=== PATIENT | male | born 1965 | race Caucasian/White ===

== ENCOUNTER 2017-11-08 16:43 | Emergency (ER) | payer OTHER ==
--- NOTE | 2017-11-08 17:54 | ER Document Report ---
ED Medical Screen (RME) - General Chief Complaint: Vision Problem Stated Complaint: VISION ISSUE Time Seen by Provider: 11/08/17 17:52 Mode of Arrival: Ambulatory Information source: Patient Notes: This is a 52-year-old man who presents to the ER with 2 complaints: #1. Patient complains of decreased vision in his left eye and this is occurred over the past week and a half. He states that the vision got significantly worse over the last 5-6 days. He denies any pain to that eye. #2. Patient was cleaning his left ear with a Q-tip and is concerned he may have punctured his left eardrum. He noticed some pain and bleeding from that. TRAVEL OUTSIDE OF THE [place] IN LAST 30 DAYS: No - Related Data Allergies/Adverse Reactions: No Known Allergies Allergy (Verified 11/08/17 16:44) Past Medical History - Immunizations Hx Diphtheria, Pertussis, Tetanus Vaccination: - unk Physical Exam - Vital signs Vitals: Temp Pulse Resp BP Pulse Ox 98.3 F 86 18 150/75 H 97 11/08/17 16:52 11/08/17 16:52 11/08/17 16:52 11/08/17 16:52 11/08/17 16:52 Course - Vital Signs Vital signs: Temp Pulse Resp BP Pulse Ox 98.3 F 86 18 150/75 H 97 11/08/17 16:52 11/08/17 16:52 11/08/17 16:52 11/08/17 16:52 11/08/17 16:52 Doctor's Discharge - Discharge Referrals: TIA NUNEZ DO [Primary Care Provider] - Follow up as needed
--- NOTE | 2017-11-08 18:07 | ER Document Report ---
ED Eye Complaint - General Chief Complaint: Vision Problem Stated Complaint: VISION ISSUE Time Seen by Provider: 11/08/17 17:52 Mode of Arrival: Ambulatory Information source: Patient Notes: Patient is a 52-year-old male who wears glasses who presents to the ER today for 1 week of blurred vision the left eye. Patient denies any injury, pain at all, drainage, redness. Patient states that it has been progressively blurring over the past week, getting worse day by day he thinks. Patient also complains of some bleeding from the left ear and loss of hearing after cleaning his left ear with a Q-tip prior to arrival. Patient states that he does take the Q-tip all the way in his ear canal. He thinks that he may have punctured his eardrum. TRAVEL OUTSIDE OF THE [place] IN LAST 30 DAYS: No - Related Data Allergies/Adverse Reactions: No Known Allergies Allergy (Verified 11/08/17 16:44) Past Medical History - General Information source: Patient - Social History Smoking Status: Current Every Day Smoker Chew tobacco use (# tins/day): No Frequency of alcohol use: None Drug Abuse: None Family History: Reviewed & Not Pertinent Patient has suicidal ideation: No Patient has homicidal ideation: No Renal/ Medical History: Denies: Hx Peritoneal Dialysis - Immunizations Hx Diphtheria, Pertussis, Tetanus Vaccination: - unk Review of Systems - Review of Systems Constitutional: No symptoms reported EENT: See HPI Cardiovascular: No symptoms reported Respiratory: No symptoms reported Gastrointestinal: No symptoms reported Genitourinary: No symptoms reported Male Genitourinary: No symptoms reported Musculoskeletal: No symptoms reported Skin: No symptoms reported Hematologic/Lymphatic: No symptoms reported Neurological/Psychological: No symptoms reported Physical Exam - Vital signs Vitals: Temp Pulse Resp BP Pulse Ox 98.3 F 86 18 150/75 H 97 11/08/17 16:52 11/08/17 16:52 11/08/17 16:52 11/08/17 16:52 11/08/17 16:52 - Notes Notes: PHYSICAL EXAMINATION: GENERAL: Well-appearing and in no acute distress. HEAD: Atraumatic, normocephalic. EYES: Pupils equal round and reactive to light, extraocular movements intact, sclera anicteric, conjunctiva are normal. ENT: left ear canal with tiny perforation in the inferior right quadrant, small amount of bright red blood in canal, no sign of infection, right ear canal without erythema or foreign body, right TM pearly heart with good bony landmarks , nares patent, oropharynx clear without exudates. Moist mucous membranes. NECK: Normal range of motion, supple without lymphadenopathy LUNGS: CTAB and equal. No wheezes rales or rhonchi. HEART: Regular rate and rhythm without murmurs EXTREMITIES: Normal range of motion, no pitting edema. No cyanosis. NEUROLOGICAL: Cranial nerves grossly intact. Normal sensory/motor exams. PSYCH: Normal mood, normal affect. SKIN: Warm, Dry, normal turgor, no rashes or lesions noted Course - Re-evaluation Re-evalutation: 11/09/17 00:41 Pressures were 23, 19 and 22 consecutively in the left eye, tetracaine was applied, fluorescein stain revealed no increased uptake, no abrasion, foreign body or ulceration, ultrasound of the left eye performed at bedside reveals no abnormality, no retinal detachment, as there is no pain and no emergent obvious condition of the eye today, I advised that he follow up with ophthalmology, I did give him the information, address and phone number for the carpet cleaner. He agrees to follow-up with him on the next business day. There is nothing to do about the ear perforation, no signs of infection, I do not see a reason for antibiotics at this time. I have advised him to no longer use Q-tips in the ear canals. He is also advised no swimming. - Vital Signs Vital signs: Temp Pulse Resp BP Pulse Ox 97.5 F 63 18 140/73 H 98 11/08/17 18:55 11/08/17 18:55 11/08/17 18:55 11/08/17 18:55 11/08/17 18:55 Procedures - Eye Procedure Left Time completed: 20:00 Eye Irrigated w/ Saline (ccs): 30 Alcaine Drops Administered: Yes Fluorescein applied: Left Slit lamp used: No Discharge - Discharge Clinical Impression: Change in vision Ear drum perforation Qualifiers: Laterality: left Qualified Code(s): H72.92 - Unspecified perforation of tympanic membrane, left ear Condition: Stable Disposition: HOME, SELF-CARE Additional Instructions: Return immediately for any new or worsening symptoms. Follow up with primary care provider, call tomorrow to make followup appointment. You Referrals: TIA NUNEZ DO [Primary Care Provider] - Follow up as needed LISA ROJAS DO [ACTIVE STAFF] - Follow up as needed
[2017-11-08] MEDS ORDERED: TETRACAINE HCL 0.5% OPH SOLN 2 ML OS ONE (18:16)
[2017-11-08 18:57] VITALS: BP 140/73
== END 2017-11-08 18:57 | disposition home or self-care (01) ==
LOC: ER 16:43
DX: H53.8 Other visual disturbances (principal); H72.92 Unspecified perforation of tympanic membrane, left ear; F17.200 Nicotine dependence, unspecified, uncomplicated
CPT/HCPCS: 99283

== ENCOUNTER 2018-02-25 06:35 | Day surgery (SDC) | payer OTHER ==
[~2018-02-25 06:35] MED LIST: KETOROLAC TROMETHAMINE 0.45% 4 DROP/0.4 ML DROPERETTE OS PRN
[2018-02-25] MEDS: CYCLOPENTOLATE 0.2%/PHENYLEPHRINE 1% OPH SOLN 2 ML OS PRN ×3 (06:53→07:14)
[2018-02-25] MEDS: TROPICAMIDE 1% OPH SOLN 3 ML OS PRN ×3 (06:53→07:14)
[2018-02-25] MEDS: TETRACAINE HCL 0.5% OPH SOLN 0.6 ML DROPERETTE OS PRN ×4 (06:53→07:30)
[2018-02-25] MEDS: BESIFLOXACIN HCL 0.6% OPH SUSP 5 ML BOTTLE OS PRN ×4 (06:53→07:49)
[2018-02-25] MEDS ORDERED: MIDAZOLAM 2 MG/2 ML INJ ONE (07:17)
[2018-02-25] MEDS: LIDOCAINE 1% INJ-PF (10 MG/ML) 30 ML SDV ONE ×2 (07:38)
[2018-02-25] MEDS: EPINEPHRINE INJ/PF 1 MG/1 ML AMPULE ONE ×2 (07:38)
[2018-02-25] MEDS: CHONDR SU A NA/HYALUR INTRAOC KIT (SURGICARE) ONE ×2 (07:38)
[2018-02-25] MEDS: TOBRAMYCIN SULFATE/DEXAMETH OPH OINTMENT 3.5 GM ONE ×2 (07:49)
== END 2018-02-25 08:36 | disposition home or self-care (01) ==
LOC: SC 06:35
PROVIDERS: ATTEND Ophthalmology
DX: H25.12 Age-related nuclear cataract, left eye (principal); Z79.899 Other long term (current) drug therapy; F17.210 Nicotine dependence, cigarettes, uncomplicated; I10 Essential (primary) hypertension; E03.9 Hypothyroidism, unspecified
CPT/HCPCS: 66984; V2630; J2250; J3490 ×3; J0171; 142

== ENCOUNTER 2018-03-11 06:47 | Day surgery (SDC) | payer OTHER ==
[~2018-03-11 06:47] MED LIST changes: +KETOROLAC TROMETHAMINE 0.45% 4 DROP/0.4 ML DROPERETTE OD PRN; -KETOROLAC TROMETHAMINE 0.45% 4 DROP/0.4 ML DROPERETTE OS PRN
[2018-03-11] MEDS: TETRACAINE HCL 0.5% OPH SOLN 0.6 ML DROPERETTE OD PRN ×3 (07:05→07:46)
[2018-03-11] MEDS: CYCLOPENTOLATE 0.2%/PHENYLEPHRINE 1% OPH SOLN 2 ML OD PRN ×3 (07:06→07:28)
[2018-03-11] MEDS: TROPICAMIDE 1% OPH SOLN 3 ML OD PRN ×3 (07:06→07:28)
[2018-03-11] MEDS: BESIFLOXACIN HCL 0.6% OPH SUSP 5 ML BOTTLE OD PRN ×4 (07:06→08:11)
[2018-03-11] MEDS ORDERED: MIDAZOLAM 2 MG/2 ML INJ ONE (07:18)
[2018-03-11] MEDS ORDERED: FENTANYL CITRATE INJ/PF 100 MCG/2 ML AMPUL ONE (07:18)
[2018-03-11] MEDS: LIDOCAINE 1% INJ-PF (10 MG/ML) 30 ML SDV ONE ×2 (08:00)
[2018-03-11] MEDS: CHONDR SU A NA/HYALUR INTRAOC KIT (SURGICARE) ONE ×2 (08:00)
[2018-03-11] MEDS: EPINEPHRINE INJ/PF 1 MG/1 ML AMPULE ONE ×2 (08:00)
[2018-03-11] MEDS: TOBRAMYCIN SULFATE/DEXAMETH OPH OINTMENT 3.5 GM ONE ×2 (08:11)
== END 2018-03-11 08:50 | disposition home or self-care (01) ==
LOC: SC 06:47
PROVIDERS: ATTEND Ophthalmology
DX: H25.11 Age-related nuclear cataract, right eye (principal); Z98.42 Cataract extraction status, left eye; F17.210 Nicotine dependence, cigarettes, uncomplicated; E03.9 Hypothyroidism, unspecified; J44.9 Chronic obstructive pulmonary disease, unspecified; I10 Essential (primary) hypertension; Z79.899 Other long term (current) drug therapy
CPT/HCPCS: 66984; V2630; J2250; J3490 ×3; J0171; J3010; 142